=== PATIENT | female | born 1955 | race Caucasian/White ===

== ENCOUNTER 2019-04-13 10:04 | Emergency (ER) | payer BC, OTHER ==
[2019-04-13 10:37] VITALS: BP 136/82
--- NOTE | 2019-04-13 12:07 | UC ---
Skin Complaint HPI - HPI Summary HPI Summary: Pt presents with concern for tick bite and subsequent rash that has developed since removing the tick this morning. She is concerned that she has a bull's eye rash. Denies, fever, chills, body aches. Does not know how long tick was attached. - History of Current Complaint Chief Complaint: UCGeneralIllness Time Seen by Provider: 04/13/19 11:15 Stated Complaint: SKIN CONCERN Hx Obtained From: Patient ?: No Onset/Duration: Sudden Onset, Still Present Skin Exposure Onset/Duration: Days Ago Timing: Constant Onset Severity: Mild Current Severity: Mild Pain Intensity: 0 Pain Scale Used: 0-10 Numeric Location: Discrete - right side of anterior neck Character: Redness Aggravating Factor(s): Nothing Associated Signs & Symptoms: Positive: Rash Related History: Insect Bite/Sting - Allergy/Home Medications Allergies/Adverse Reactions: Allergies Allergy/AdvReac Type Severity Reaction Status Date / Time No Known Allergies Allergy Verified 04/13/19 10:32 PMH/Surg Hx/FS Hx/Imm Hx Previously Healthy: Yes - Surgical History Surgical History: Yes Surgery Procedure, Year, and Place: left middle finger repair - Family History Known Family History: Positive: Cardiac Disease - Social History Occupation: Works From/At Home Lives: With Family Alcohol Use: Occasionally Substance Use Type: None Smoking Status (MU): Never Smoked Tobacco Have You Smoked in the Last Year: No - Immunization History Vaccination Up to Date: No Review of Systems All Other Systems Reviewed And Are Negative: Yes Constitutional: Positive: Negative Skin: Positive: Rash Eyes: Positive: Negative ENT: Positive: Negative Respiratory: Positive: Negative Cardiovascular: Positive: Negative Gastrointestinal: Positive: Negative Genitourinary: Positive: Negative Motor: Positive: Negative Neurovascular: Positive: Negative Musculoskeletal: Positive: Negative Neurological: Positive: Negative Psychological: Positive: Negative Is Patient Immunocompromised?: No Physical Exam Triage Information Reviewed: Yes Appearance: Well-Appearing Vital Signs: Initial Vital Signs Temp 97.3 F 04/13/19 10:33 Pulse 77 04/13/19 10:33 Resp 16 04/13/19 10:33 BP 136/82 04/13/19 10:33 Pulse Ox 97 04/13/19 10:33 Vital Signs Reviewed: Yes Eye Exam: Normal ENT Exam: Normal Dental Exam: Normal Neck exam: Normal Respiratory Exam: Normal Cardiovascular Exam: Normal Musculoskeletal Exam: Normal Neurological Exam: Normal Psychological Exam: Normal Skin: Positive: Rashes - right anterior neck just above clavicle, erythematous rash, with slightly paler central clearing, tick was removed prior to arrival. Course/Dx - Differential Diagnoses - Skin Complaint Differential Diagnoses: Cellulitis, Tick Born Illness - Diagnoses Provider Diagnosis: Tick bite of neck Discharge - Sign-Out/Discharge Documenting (check all that apply): Patient Departure All imaging exams completed and their final reports reviewed: No Studies - Discharge Plan Condition: Stable Disposition: HOME Prescriptions: DOXYcycline CAP(*) [DOXYcycline 100MG CAP(*)] 100 mg PO Q12H #42 cap Patient Education Materials: Tick Bite (ED) Referrals: No Primary Care Phys,NOPCP [Primary Care Provider] - [facility] [place] [facility] [Outside] - As Soon As Possible Additional Instructions: Please establish care with a PCP as soon as possible. - Billing Disposition and Condition Condition: STABLE Disposition: Home
--- NOTE | 2019-04-15 10:53 | UC ---
- Progress Note Progress Note: RN to call pt. Lyme screen + . Has been sent to reference lab for confirmatory testing. Take abx as prescribed. Very important to f/u with PCP. If no PCP then consider [facility] [place]. Seek medical attention in the meantime for worse or new problems. Hydrate. Course/Dx - Diagnoses Provider Diagnoses: Tick bite of neck Discharge - Sign-Out/Discharge Documenting (check all that apply): Post-Discharge Follow Up All imaging exams completed and their final reports reviewed: No Studies - Discharge Plan Condition: Stable Disposition: HOME Prescriptions: DOXYcycline CAP(*) [DOXYcycline 100MG CAP(*)] 100 mg PO Q12H #42 cap Patient Education Materials: Tick Bite (ED) Referrals: [facility] [place] [facility] [Outside] - As Soon As Possible No Primary Care Phys,NOPCP [Primary Care Provider] - Additional Instructions: Please establish care with a PCP as soon as possible. - Billing Disposition and Condition Condition: STABLE Disposition: Home
== END 2019-04-13 11:49 | disposition home or self-care (01) ==
LOC: UCCORT 10:04
DX: S10.96XA Insect bite of unspecified part of neck, initial encounter (principal); W57.XXXA Bitten or stung by nonvenomous insect and other nonvenomous arthropods, initial encounter
CPT/HCPCS: 36415; 86617; 86618; 99201; G0463